=== PATIENT | female | born 1965 | race African-American/Black ===

== ENCOUNTER 2018-02-01 15:12 | Emergency (ER) | payer MEDICAID ==
[~2018-02-01] VITALS: Ht 165.1 cm; Wt 66.0 kg
[2018-02-01 15:21] VITALS: BP 135/87
[2018-02-01] MEDS ORDERED: IBUPROFEN 600MG TABLET PO ONE (20:30)
== END 2018-02-01 21:36 | disposition home or self-care (01) ==
LOC: ER 15:12
DX: S16.1XXA Strain of muscle, fascia and tendon at neck level, initial encounter (principal); F17.200 Nicotine dependence, unspecified, uncomplicated; V49.49XA Driver injured in collision with other motor vehicles in traffic accident, initial encounter; Y93.89 Activity, other specified; Y92.89 Other specified places as the place of occurrence of the external cause; Y99.8 Other external cause status
CPT/HCPCS: 99282